=== PATIENT | female | born 1985 | race Caucasian/White ===

== ENCOUNTER 2018-09-14 07:14 | Emergency (ER) | payer MEDICAID ==
[~2018-09-14] VITALS: Ht 167.6 cm; Wt 56.0 kg
[~2018-09-14 07:14] MED LIST: FERR-55 PO; FERR27TA PO; FOLI-49; IBUP-1542 PO; NO CURRENT MEDS; NO MEDS; PREN1TAB49
[2018-09-14 07:24] VITALS: BP 121/77; PULSE 113; RESP 20; Ht 167.6 cm; Wt 56.0 kg
[2018-09-14] MEDS ORDERED: NEOMYC/POLYMYX/HC 10 ML OTIC SUSP RIGHT EAR ONE (08:00)
[2018-09-14] MEDS ORDERED: predniSONE 20 MG TAB PO ONE (08:00)
[2018-09-14] MEDS ORDERED: IBUPROFEN 600 MG TAB PO ONE (08:00)
[2018-09-14] MEDS ORDERED: HYDR-4011 PO (08:03)
[2018-09-14] MEDS ORDERED: NPH10OT RIGHT EAR (08:03)
[2018-09-14] MEDS ORDERED: IBUP-1542 PO (08:03)
[2018-09-14] MEDS ORDERED: AMOX500C2 PO (08:05)
--- NOTE | 2018-09-14 08:12 | ERD ---
ER Documentation Chief Complaint Chief Complaint Complains of cough, colds and flu symptoms x 3 days HPI 32-year-old female presents with complaint of right ear pain for the past 3 days. States that moving her head makes the pain a lot worse. Taking ibuprofen. Denies hearing loss, bloody discharge from the ear, fevers, chills, vomiting, diarrhea, abdominal pain. Denies past medical history. Denies allergies. Denies medications. Denies surgeries. Denies alcohol, tobacco, drug use. Up to date on vaccines. ROS All systems reviewed and are negative except as per history of present illness. Medications Home Meds Active Scripts Amoxicillin* (Amoxicillin*) 500 Mg Cap, 500 MG PO TID for otitis media for 10 Days, CAP Prov:FRANCI JAMIL 09/14/18 Neomycin/Polymyxin/Hydrocort* (Cortisporin* Otic) 10 Ml Susp, 4 DROP RIGHT EAR QID for otitis externa for 7 Days, EA Prov:FRANCI JAMIL 09/14/18 Ibuprofen* (Motrin*) 600 Mg Tab, 600 MG PO Q6H PRN for PAIN AND OR ELEVATED TEMP, #30 TAB Prov:FRANCI JAMIL 09/14/18 Hydrocodone/Acetaminophen (Jackpot 5-325 Tablet) 1 Each Tablet, 1 TAB PO Q6H PRN for PAIN, #14 TAB Prov:FRANCI JAMIL 09/14/18 Ibuprofen* (Ibuprofen*) 600 Mg Tablet, 600 MG PO Q6, #20 TAB Prov:GREGORY CLAIRE NP 03/10/15 Reported Medications Ferrous Sulfate* (Ferrous Sulfate*) 325 Mg Tablet, 325 MG PO DAILY 10/29/12 Ferrous Sulfate (Iron) 1 Tab Tablet, 1 TAB PO DAILY 06/28/12 Folic Acid* (Folic Acid*) 1 Mg Tablet 07/12/11 Vits W-Ca,Fe,Fa(<1MG) () 1 Tab Tablet 07/12/11 [No Meds] No Conflict Check 02/15/11 [No Current Meds] No Conflict Check 10/23/09 Allergies Allergies: Coded Allergies: No Known Drug Allergies (Verified Allergy, Mild, 02/15/11) PMhx/Soc History of Surgery: No Anesthesia Reaction: No Hx Neurological Disorder: No Hx Respiratory Disorders: No Hx Cardiac Disorders: No Hx Psychiatric Problems: No Hx Miscellaneous Medical Probl: No Hx Alcohol Use: No Hx Substance Use: No Hx Tobacco Use: No FmHx Family History: No diabetes, No coronary disease, No other Physical Exam Vitals Vital Signs Date Temp Pulse Resp B/P (MAP) Pulse Ox O2 O2 Flow FiO2 Time Delivery Rate 09/14/18 98.3 113 20 121/77 99 07:24 (92) Physical Exam Const: No acute distress Head: Atraumatic Eyes: Normal Conjunctiva ENT: Normal External Ears, Nose and Mouth. Right TM is edematous and erythematous. Right ear canal is erythematous with mild edema. There is no discharge noted. Mastoids are nonedematous or erythematous with no tenderness to palpation. Neck: Full range of motion. No meningismus. Resp: Clear to auscultation bilaterally Cardio: Regular rate and rhythm, no murmurs Abd: Soft, non tender, non distended. Normal bowel sounds Skin: No petechiae or rashes Back: No midline or flank tenderness Ext: No cyanosis, or edema Neur: Awake and alert Psych: Normal Mood and Affect Results 24 hrs Current Medications Medications Dose Sig/Cecil Start Time Status Last (Trade) Ordered Route PRN Stop Time Admin Dose Reason Admin Prednisone 40 mg ONCE ONCE 09/14/18 DC (Prednisone) PO 08:00 09/14/18 08:01 Ibuprofen 600 mg ONCE ONCE 09/14/18 DC (Motrin) PO 08:00 09/14/18 08:01 Neomycin/ 4 drop ONCE ONCE 09/14/18 DC Polymyxin/ RIGHT EAR 08:00 Hydrocortison 09/14/18 08:01 e (Cortisporin Otic Susp) Procedures/MDM 32-year-old female presents with complaint of right ear pain for the past 3 days. States that moving her head makes the pain a lot worse. Taking ibuprofen. Denies hearing loss, bloody discharge from the ear, fevers, chills, vomiting, diarrhea, abdominal pain. Denies past medical history. Denies allergies. Denies medications. Denies surgeries. Denies alcohol, tobacco, drug use. Up to date on vaccines. I have low suspicion for mastoiditis due to lack of erythema, edema, or ttp over mastoid area. I have low suspicion for intercranial abscess due to lack of MANLEY or focal neurological findings. I have low suspicion of TM rupture or trauma based on lack of hearing loss, vertigo, and PE findings. Most likely diagnosis is acute otitis media. Patient given Cortisporin, ibuprofen, and prednisone in the ER . Patient given Rx for prednisone, Cortisporin, Jackpot, and ibuprofen. Based on these findings I do not feel that additional labs or imaging is necessary. Patient was discharged with strict ER precautions. Patient was recommended to follow-up with PMD. All questions answered at discharge. Departure Diagnosis: Primary Impression: Otitis media Otitis media type: suppurative Chronicity: acute Laterality: right Recurrence: non-recurrent Spontaneous tympanic membrane rupture: without spontaneous rupture Qualified Codes: H66.001 - Acute suppurative otitis media without spontaneous rupture of ear drum, right ear Additional Impression: Otitis externa Otitis externa type: unspecified type Chronicity: acute Laterality: right Qualified Codes: H60.501 - Unspecified acute noninfective otitis externa, right ear Condition: Stable Patient Instructions: Otitis Media, Abx Tx (Adult), External Ear Infection (Adult) Referrals: [facility] YOU HAVE RECEIVED A MEDICAL SCREENING EXAM AND THE RESULTS INDICATE THAT YOU DO NOT HAVE A CONDITION THAT REQUIRES URGENT TREATMENT IN THE EMERGENCY DEPARTMENT. FURTHER EVALUATION AND TREATMENT OF YOUR CONDITION CAN WAIT UNTIL YOU ARE SEEN IN YOUR DOCTORS OFFICE WITHIN THE NEXT 1-2 DAYS. IT IS YOUR RESPONSIBILITY TO MAKE AN APPOINTMENT FOR FOLOW-UP CARE. IF YOU HAVE A PRIMARY DOCTOR --you should call your primary doctor and schedule an appointment IF YOU DO NOT HAVE A PRIMARY DOCTOR YOU CAN CALL OUR PHYSICIAN REFERRAL HOTLINE AT IF YOU CAN NOT AFFORD TO SEE A PHYSICIAN YOU CAN CHOSE FROM THE FOLLOWING [facility] [id number] [facility]. [facility] [address] [facility] [address] [facility] [facility] [address] [facility]. [facility] [address] [facility]. [facility]. [address] [place] Additional Instructions: FOLLOW UP WITH YOUR PRIMARY CARE PHYSICIAN TOMORROW.Return to this facility if you are not improving as expected. FRANCI JAMIL Sep 14, 2018 08:12
[2018-09-14] MEDS ORDERED: PRED20TA PO (08:13)
== END 2018-09-14 09:04 | disposition home or self-care (01) ==
LOC: FTE 07:14
DX: H66.001 Acute suppurative otitis media without spontaneous rupture of ear drum, right ear (principal); H60.501 Unspecified acute noninfective otitis externa, right ear
CPT/HCPCS: J7512; Z7502; Z7610; 99283